=== PATIENT | male | born 1955 | race Two or more races ===

== ENCOUNTER 2020-01-13 07:10 | Outpatient (CLI) | payer OTHER | END 2020-01-13 07:17 | disposition home or self-care (01) | LOC: NUCLEAR 07:10 | PROVIDERS: ATTEND Urology | DX: C61 Malignant neoplasm of prostate (principal) | CPT/HCPCS: 78306; A9503 ==

== ENCOUNTER 2020-11-14 23:31 | Emergency (ER) | payer OTHER ==
[~2020-11-14] VITALS: Ht 170.2 cm; Wt 73.5 kg
[2020-11-14] MEDS ORDERED: LOSARTAN POTASS50 MG (23:45)
[2020-11-14] MEDS ORDERED: LIPITOR40 M1 (23:45)
[2020-11-14] MEDS ORDERED: NORVASC5 MG (23:45)
[2020-11-14] MEDS ORDERED: SYNTHROID112 MCG (23:45)
[2020-11-15] MEDS ORDERED: CEPHALEXIN500 MG PO (02:01)
[2020-11-15] MEDS ORDERED: SILVER SULFADIA50 GM TOP (02:01)
[2020-11-15] MEDS ORDERED: KETO10TA2 PO (02:01)
== END 2020-11-15 02:05 | disposition home or self-care (01) ==
LOC: ER 23:31
DX: T23.262A Burn of second degree of back of left hand, initial encounter (principal); T23.232A Burn of second degree of multiple left fingers (nail), not including thumb, initial encounter; X10.2XXA Contact with fats and cooking oils, initial encounter; Y93.G3 Activity, cooking and baking; Y92.010 Kitchen of single-family (private) house as the place of occurrence of the external cause; Y99.8 Other external cause status